=== PATIENT | male | born 1960 | race Caucasian/White ===

== ENCOUNTER 2018-06-23 22:14 | Emergency (ER) | payer SELFPAY ==
[~2018-06-23] VITALS: Ht 165.1 cm; Wt 88.5 kg
[~2018-06-23 22:14] MED LIST: COUGH DROPS
== END 2018-06-23 23:08 | disposition left against medical advice (07) ==
LOC: ER 22:14
DX: R69 Illness, unspecified (principal)

== ENCOUNTER 2018-10-02 10:12 | Emergency (ER) | payer SELFPAY ==
[~2018-10-02] VITALS: Ht 165.1 cm; Wt 88.5 kg
[2018-10-02] MEDS ORDERED: GABAPENTIN100 MG PO (10:24)
== END 2018-10-02 10:33 | disposition home or self-care (01) ==
LOC: ER 10:12
DX: R20.2 Paresthesia of skin (principal); X50.3XXA Overexertion from repetitive movements, initial encounter; Y93.H3 Activity, building and construction; Y99.0 Civilian activity done for income or pay
CPT/HCPCS: 99282

== ENCOUNTER 2018-11-08 17:08 | Emergency (ER) | payer SELFPAY ==
[~2018-11-08] VITALS: Ht 165.1 cm; Wt 88.5 kg
[~2018-11-08 17:08] MED LIST changes: +GABAPENTIN100 MG PO
== END 2018-11-08 17:25 | disposition left against medical advice (07) ==
LOC: ER 17:08
DX: G62.9 Polyneuropathy, unspecified (principal)